=== PATIENT | female | born 1945 | race Caucasian/White ===

== ENCOUNTER 2016-12-29 02:51 | Emergency (ER) | payer MEDICARE, OTHER ==
[2016-12-29] MEDS ORDERED: Aspirin 81 MG Tab.Chew PO ONE (03:01)
[2016-12-29] MEDS ORDERED: Nitroglycerin 0.4 MG Tab.SL SL PRN (03:02)
--- NOTE | 2016-12-29 03:12 | EDM.PDOC ---
ED HPI GENERAL MEDICAL PROBLEM - General Chief Complaint: Chest Pain Stated Complaint: CHEST PAIN Time Seen by Provider: 12/29/16 03:07 Source of Information: Reports: Patient, Family History Limitations: Reports: No Limitations - History of Present Illness INITIAL COMMENTS - FREE TEXT/NARRATIVE: pt was sleeping in a odd position and she woke up with her arm under the pillow. She now has pain in left chest and shoulder blade area. This is quite uncomfortsble. Onset: Today Duration: Hour(s): Location: Reports: Chest, Back Associated Symptoms: Reports: Chest Pain, Other (Pain by the left shoulder blade area. ) Left chest/back Pain Score (Numeric/FACES): 2 - Related Data Allergies Allergy/AdvReac Type Severity Reaction Status Date / Time atenolol Allergy Anxiety Verified 12/29/16 03:06 Home Meds: Home Meds Propranolol [Inderal LA] 80 mg PO DAILY 12/29/16 [History] ED ROS GENERAL - Review of Systems Review Of Systems: See Below Constitutional: Reports: No Symptoms HEENT: Reports: No Symptoms Respiratory: Reports: Other ( hurts in her chest when she takes a deep breath. ) Cardiovascular: Reports: No Symptoms Endocrine: Reports: No Symptoms GI/Abdominal: Reports: No Symptoms : Reports: No Symptoms Musculoskeletal: Reports: Other (pt has pain in left chest nd by the left scapula) Skin: Reports: No Symptoms Neurological: Reports: No Symptoms ED EXAM, GENERAL - Physical Exam Exam: See Below Free Text/Narrative:: pt arrived uncomfortable in the left chest and left scapular area. This woke her up and she has not been able to get comfortable. Exam Limited By: No Limitations General Appearance: Alert, Anxious, Mild Distress Ears: Normal TMs Nose: Normal Inspection Throat/Mouth: Normal Inspection Head: Atraumatic Neck: Normal Inspection Respiratory/Chest: No Respiratory Distress Cardiovascular: Regular Rate, Rhythm GI/Abdominal: Soft, Non-Tender (Female) Exam: Deferred Rectal (Female) Exam: Deferred Back Exam: Other (pt is tender by the left scapula) Extremities: Normal Inspection Neurological: Alert, Oriented, Normal Cognition Psychiatric: Normal Affect Course - Vital Signs Last Recorded V/S: Last Vital Signs Temp 37.0 C 12/29/16 03:18 Pulse 59 L 12/29/16 03:18 Resp 18 12/29/16 03:18 BP 165/77 H 12/29/16 03:18 Pulse Ox 95 12/29/16 03:18 - Orders/Labs/Meds Orders: Active Orders 24 hr Category Date Time Status EKG Documentation Completion [RC] ASDIRECTED Care 12/29/16 02:54 Active Chest 1V Frontal [CR] Stat Exams 12/29/16 03:02 Taken EKG 12 Lead [EK] Routine Ther 12/29/16 02:54 Ordered Labs: Laboratory Tests 12/29/16 12/29/16 12/29/16 Range/Units 03:09 03:09 03:09 WBC 7.2 (4.5-11.0) K/uL RBC 4.17 (3.30-5.50) M/uL Hgb 13.0 (12.0-15.0) g/dL Hct 38.7 (36.0-48.0) % MCV 93 (80-98) fL MCH 31 (27-31) pg MCHC 34 (32-36) % Plt Count 256 (150-400) K/uL Neut % (Auto) 40 (36-66) % Lymph % (Auto) 43 (24-44) % Borden % (Auto) 12 H (2-6) % Eos % (Auto) 4 (2-4) % Baso % (Auto) 1 (0-1) % Sodium 142 (140-148) mmol/L Potassium 3.8 (3.6-5.2) mmol/L Chloride 106 (100-108) mmol/L Carbon Dioxide 28 (21-32) mmol/L Anion Gap 8.5 (5.0-14.0) mmol/L BUN 12 (7-18) mg/dL Creatinine 0.9 (0.6-1.0) mg/dL Est Cr Clr Drug Dosing 42.38 mL/min Estimated GFR (MDRD) > 60 (>60) Glucose 110 H (74-106) mg/dL Calcium 8.4 L (8.5-10.1) mg/dL Total Bilirubin 0.4 (0.2-1.0) mg/dL AST 17 (15-37) U/L ALT 22 (12-78) U/L Alkaline Phosphatase 80 (46-116) U/L Creatine Kinase 47 (26-192) U/L Troponin I < 0.017 (0.000-0.056) ng/mL Total Protein 7.3 (6.4-8.2) g/dL Albumin 3.2 L (3.4-5.0) g/dL Globulin 4.1 H (2.3-3.5) g/dL Albumin/Globulin Ratio 0.8 L (1.2-2.2) Meds: Medications Discontinued Medications Generic Name Dose Route Start Last Admin Trade Name Freq PRN Reason Stop Dose Admin Aspirin 324 mg 12/29/16 03:01 12/29/16 03:13 Aspirin PO 12/29/16 03:02 324 mg ONETIME ONE Administration Ketorolac Tromethamine 60 mg 12/29/16 03:49 12/29/16 04:00 Toradol IM 12/29/16 03:50 60 mg ONETIME ONE Administration Nitroglycerin 0.4 mg 12/29/16 03:02 Nitrostat SL 12/29/16 03:13 Q5M PRN Chest Pain - Re-Assessments/Exams Free Text/Narrative Re-Assessment/Exam: 12/29/16 03:44 ekg shows no acute changes, cardiac enzymes are normal . Chest xray does not show an infiltrate. 12/29/16 03:46 Departure - Departure Time of Disposition: 04:05 Disposition: Home, Self-Care 01 Condition: fair Clinical Impression: Muscle spasm of back, Muscle spasm of left shoulder Referrals: PCP,None [Primary Care Provider] - Forms: ED Department Discharge Care Plan Goals: heat or ice to the area, motrin or tylenol for pain, if persistent problems recheck - My Orders Last 24 Hours: My Active Orders 12/29/16 02:54 EKG Documentation Completion [RC] ASDIRECTED EKG 12 Lead [EK] Routine 12/29/16 03:02 Chest 1V Frontal [CR] Stat - Assessment/Plan Last 24 Hours: My Active Orders 12/29/16 02:54 EKG Documentation Completion [RC] ASDIRECTED EKG 12 Lead [EK] Routine 12/29/16 03:02 Chest 1V Frontal [CR] Stat
[2016-12-29] MEDS ORDERED: Ketorolac 60 MG/2 ML SDV IM ONE (03:49)
[2016-12-29 04:15] VITALS: BP 168/76
--- NOTE | 2016-12-30 09:00 | CR ---
Mild-moderate cardiomegaly. No focal consolidation. Pulmonary vasculature within normal limits.
== END 2016-12-29 04:17 | disposition home or self-care (01) ==
LOC: JP.ED 02:51
DX: M62.830 Muscle spasm of back (principal); M62.838 Other muscle spasm; Z88.8 Allergy status to other drugs, medicaments and biological substances; Z79.899 Other long term (current) drug therapy
CPT/HCPCS: 36415; 71010; 80053; 82550; 84484; 85025; 93005; 99285; A9270; J1885; 93010; 99283